=== PATIENT | female | born 1990 | race Caucasian/White ===

== ENCOUNTER 2017-04-09 16:51 | Emergency (ER) | payer BC ==
[2017-04-09 18:12] VITALS: BP 107/75
--- NOTE | 2017-04-09 18:45 | UC ---
FLU HPI - HPI Summary HPI Summary: sinus pain , nausea/vomiting/fevers body aches - History of Current Complaint Chief Complaint: UCRespiratory Stated Complaint: FEVER/CONGESTION Time Seen by Provider: 04/09/17 18:38 Hx Obtained From: Patient Hx Last Menstrual Period: 03/16/17 ?: No Onset/Duration: Sudden Onset Severity Currently: Mild Severity Initially: Mild Pain Intensity: 0 Associated Signs & Symptoms: Positive: Fever, Myalgia, Cough, Sore Throat - Allergy/Home Medications Allergies/Adverse Reactions: Allergies Allergy/AdvReac Type Severity Reaction Status Date / Time No Known Allergies Allergy Verified 04/09/17 18:06 Home Medications: Home Medications NK [No Home Medications Reported] 04/09/17 [History Confirmed 04/09/17] PMH/Surg Hx/FS Hx/Imm Hx Previously Healthy: Yes - Surgical History Surgical History: None - Family History Known Family History: Negative: Cardiac Disease, Hypertension, Diabetes - Social History Occupation: Employed Full-time Lives: With Family Alcohol Use: Weekly Alcohol Amount: 5 on one day Substance Use Type: None Smoking Status (MU): Light Every Day Tobacco Smoker Type: Cigarettes Amount Used/How Often: 5 CIGS PER DAY Have You Smoked in the Last Year: Yes Household Exposure Type: Cigarettes Review of Systems Constitutional: Fever, Chills, Fatigue Skin: Negative Eyes: Negative ENT: Nasal Discharge, Sinus Congestion, Sinus Pain/Tenderness Respiratory: Cough Cardiovascular: Negative Gastrointestinal: Vomiting, Nausea Genitourinary: Negative Motor: Negative Neurovascular: Negative Musculoskeletal: Arthralgia, Myalgia Neurological: Negative Psychological: Negative Is Patient Immunocompromised?: No All Other Systems Reviewed And Are Negative: Yes Physical Exam Triage Information Reviewed: Yes Appearance: Well-Nourished, Ill-Appearing - mild, Pain Distress Vital Signs: Initial Vital Signs Temp 97.4 F 04/09/17 18:06 Pulse 75 04/09/17 18:06 Resp 16 04/09/17 18:06 BP 107/75 04/09/17 18:06 Pulse Ox 100 04/09/17 18:06 Vital Signs Reviewed: Yes Eye Exam: Normal Eyes: Positive: Conjunctiva Clear ENT Exam: Normal ENT: Positive: Normal ENT inspection, Hearing grossly normal, Pharynx normal, Uvula midline. Negative: Nasal congestion, TMs normal, Tonsillar swelling, Tonsillar exudate, Trismus, Muffled voice, Hoarse voice, Sinus tenderness Dental Exam: Normal Neck exam: Normal Neck: Positive: Supple, Nontender, No Lymphadenopathy Respiratory Exam: Normal Respiratory: Positive: Chest non-tender, Lungs clear, Normal breath sounds, No respiratory distress, No accessory muscle use Cardiovascular Exam: Normal Cardiovascular: Positive: RRR, No Murmur, Pulses Normal, Brisk Capillary Refill Abdominal Exam: Normal Abdomen Description: Positive: Nontender, No Organomegaly, Soft. Negative: CVA Tenderness (R), CVA Tenderness (L) Bowel Sounds: Positive: Present Musculoskeletal Exam: Normal Musculoskeletal: Positive: Strength Intact, ROM Intact, No Edema Neurological Exam: Normal Neurological: Positive: Alert, Muscle Tone Normal Psychological Exam: Normal Psychological: Positive: Normal Response To Family Skin Exam: Normal Diagnostics - Laboratory Diagnostic Studies Completed/Ordered: Influenza A/B(-) Flu Course/Dx - Course Course Of Treatment: rest otc medication for symptom relief, increase fluids follow with pcp - Differential Dx/Diagnosis Provider Diagnoses: Viral illness Discharge - Discharge Plan Condition: Stable Disposition: HOME Patient Education Materials: Acute Nausea and Vomiting (ED), Viral Syndrome (ED ) Forms: *Work Release Referrals: Danae Glover MD [Primary Care Provider] - If Needed
== END 2017-04-09 18:50 | disposition home or self-care (01) ==
LOC: UCCORT 16:51
DX: B34.9 Viral infection, unspecified (principal); F17.210 Nicotine dependence, cigarettes, uncomplicated
CPT/HCPCS: 87502; 99211; G0463

== ENCOUNTER 2017-11-17 09:54 | Emergency (ER) | payer SELFPAY ==
[2017-11-17 10:53] VITALS: BP 118/79
--- NOTE | 2017-11-17 11:20 | UC ---
Eye Complaint HPI - HPI Summary HPI Summary: 27-year-old female presents with one-day history of left eye itching and left upper lid tenderness. States this morning she awoke with her eye crusted shut and noted some purulent discharge from the eye. She has a history of styes in the past and states this feels similar to previous episodes. Denies fever, chills, visual disturbances, photophobia, injury to eye, or URI symptoms. She is not a contact lens wearer. - History of Current Complaint Chief Complaint: UCEye Stated Complaint: LEFT EYE COMPLAINT Time Seen by Provider: 11/17/17 10:47 Hx Obtained From: Patient Hx Last Menstrual Period: 11/10/17 Onset/Duration: Gradual Onset, Lasting Days - 1 Timing: Constant Severity Initially: Mild Pain Intensity: 3 Location of Injury: Eye Lid (upper) - Left Aggravating Factor(s): Blinking Alleviating Factor(s): Nothing Associated Signs And Symptoms: Positive: Drainage (Purulent). Negative: Photophobia, Vision Impairment Left, Fever, Swelling Related History: Similar Episode - Allergies/Home Medications Allergies/Adverse Reactions: Allergies Allergy/AdvReac Type Severity Reaction Status Date / Time No Known Allergies Allergy Verified 11/17/17 10:44 PMH/Surg Hx/FS Hx/Imm Hx - Additional Past Medical History Additional PMH: Denies significant past medical history Previously Healthy: Yes - Surgical History Surgical History: None - Family History Family History: Noncontributory - Social History Occupation: Employed Full-time Lives: With Family Alcohol Use: Weekly Alcohol Amount: 5 on one day Substance Use Type: None Smoking Status (MU): Light Every Day Tobacco Smoker Type: Cigarettes Amount Used/How Often: 2 CIGS A DAY Have You Smoked in the Last Year: Yes Household Exposure Type: Cigarettes Review of Systems Constitutional: Negative Skin: Negative Eyes: Drainage - Left eye, Other - Itchiness left eye ENT: Negative Respiratory: Negative Cardiovascular: Negative Is Patient Immunocompromised?: No All Other Systems Reviewed And Are Negative: Yes Physical Exam Triage Information Reviewed: Yes Appearance: Well-Appearing, No Pain Distress, Well-Nourished Vital Signs: Initial Vital Signs Temp 97.5 F 11/17/17 10:45 Pulse 77 11/17/17 10:45 Resp 16 11/17/17 10:45 BP 118/79 11/17/17 10:45 Pulse Ox 100 11/17/17 10:45 Vital Signs Reviewed: Yes Eyes: Positive: Conjunctiva Inflamed - Mild erythema, Other: - hordeolum left upper lid near outer canthus. Negative: Discharge ENT: Positive: Normal ENT inspection Neck: Positive: Supple, Nontender, No Lymphadenopathy Respiratory: Positive: No respiratory distress Neurological: Positive: Alert Skin Exam: Normal Eye Complaint Course/Dx - Course Course Of Treatment: 27 year old female with onset of left eye itching and upper lid tenderness for 1 day with reported discharge and crusting of the eye this morning. Mild conjuctival erythema and a hordeolum to upper lid near outer canthus. Will treat with 5 day course of Polytrim ophtlamic drops. Patient is to follow up with PCP if no improvement in symptoms. - Differential Dx/Diagnosis Provider Diagnoses: conjunctivitis left eye, hordeolum left upper eyelid Discharge - Sign-Out/Discharge Documenting (check all that apply): Patient Departure All imaging exams completed and their final reports reviewed: No Studies - Discharge Plan Condition: Stable Disposition: HOME Prescriptions: Polymyx/Trimethoprim OPTH* [Polytrim OPHTH*] 1 drop LEFT EYE QID #1 btl Patient Education Materials: Stye (ED), Conjunctivitis (ED) Referrals: Danae Glover MD [Primary Care Provider] - If Needed Additional Instructions: Use the Polytrim ophthamic 1 drop into affected eye four times a day for 5 days. Apply a warm moist compress to the eye 4 times daily. You good hand hygiene to avoid spreading any infection. Do not share towels or washcloths with any one. Follow up with your primary care provider in 5 days if no improvement in symptoms. Seek immediate medical attention if you develop fever greater than 100.5 F, have changes in your vision, worsening of pain, or any worsening of symptoms. - Billing Disposition and Condition Condition: STABLE Disposition: Home
== END 2017-11-17 11:23 | disposition home or self-care (01) ==
LOC: UCCORT 09:54
DX: H00.014 Hordeolum externum left upper eyelid (principal); H10.9 Unspecified conjunctivitis; F17.210 Nicotine dependence, cigarettes, uncomplicated
CPT/HCPCS: 99212; G0463